=== PATIENT | male | born 1960 | race Caucasian/White ===

== ENCOUNTER 2024-04-10 11:24 | Day surgery (SDC) | payer MEDICARE, OTHER, SELFPAY ==
[2024-04-05 09:47] VITALS: BMI 33.2
[2024-04-10] VITALS (14 sets, daily range): BP systolic 128–166; BP diastolic 53–106; PULSE 17–69; RESP 11–20; TEMP 35.9–36.4; O2SAT 92–100; BMI 33.5
[2024-04-10] MEDS: LACTATED RINGERS 1,000 ML 42 ML IV ×2 (12:14→13:57)
[2024-04-10] MEDS: ACETAMINOPHEN 325 MG TABLET 975 MG PO (12:14)
[2024-04-10] MEDS: SCOPOLAMINE 1 PATCH TOP (12:42)
--- NOTE | 2024-04-10 12:43 | PM.PREOP ---
Pre-operative Note Interval Note History & Physical reviewed/Exam performed by Physician: Yes Changes to H&P: No
--- NOTE | 2024-04-10 13:27 | SUR.OPER ---
Prone on spine table, head in foam head support, padded chest and pelvic supports, gel pad at knees, lower legs supported by pillows; nipples, genitalia and toes free of pressure, arms secured on foam padded arm boards at <90 degrees abduction. Tape over blanket at thigh secured to table.
[2024-04-10] MEDS: BUPIVACAINE 0.25% (PF) 30 ML, EPINEPHrine 0.15 MG INJ (13:33)
[2024-04-10] MEDS: CEFAZOLIN 2 GM/100 ML PREMIX 100 ML IV (13:34)
--- NOTE | 2024-04-10 14:00 | DI.RAD.S_ITS ---
PROCEDURE: XR LUMBAR SPINE 2-3V INDICATIONS: L4-5 MICRODISCECTOMY TECHNIQUE: 2 fluoroscopic views of the lumbar spine were acquired. COMPARISON: None. FINDINGS/IMPRESSION: Ongoing L4-L5 microdiscectomy. Dictated by: Daniel Herman M.D. on 04/10/2024 at 16:56 Approved by: Daniel Herman M.D. on 04/10/2024 at 16:58
--- NOTE | 2024-04-10 14:34 | PM.OP.1 ---
Operative Date/Time/Diagnoses Date of procedure: 04/10/24 Time of procedure: 13:30 Pre-op diagnosis: 1. L4-5 disc herniation 2. L4-5 left L5 radiculopathy Post-op diagnosis: same Procedure & Clinicians Procedure: 1. L4-5 left microdiscectomy 2. Utilization of microsurgical technique and operating microscope Same procedure as scheduled: Yes Indications: Patient has been having chronic back pain and worsening lumbar radiculopathy. Patient was found to have L4-5 left paramedian disc herniation with significant L5 nerve root impingement on the left side correlating with his symptoms. Patient failed multiple conservative management with worsening pain weakness and numbness in his lower extremity. Patient has been having difficulty performing activity of daily living. After discussing risks benefits of treatment options, patient elected proceed with surgery. Surgeon: Delia Kothari Applications Engineer: Vikki Chu Click Yes if Unassisted: No Anesthesia Type: General Operative Notes Closure Type: primary Specimen(s): none sent Estimated Blood Loss (mL): 10 Blood products transfused: none Procedure in detail: Patient was seen in the preoperative area. Risks and benefits of the surgery was discussed with the patient. Informed consent was obtained from the patient and placed in the chart. Surgical site was marked. Patient was taken to the operative room. General anesthesia was administered. Prophylactic antibiotic was given to the patient less than 30 min before the incision was made. Patient was placed into a prone position on the Kojo table. Patient's back was then prepped and draped in the sterile fashion. Time-out was performed at this time. Using AP and lateral C-arm imaging the interval between L4-5 was identified and marked on patient's back. A 1 inch incision 1 in from midline was made on the left side. The fascia was incised in line with skin incision. Globus MARS retractors was placed inside the incision and docked onto the L4 lamina. Using microsurgical technique and operating microscope, a L4 laminotomy was performed using a Kerrison rongeur. Liagamentum flavum was resected at the site of the laminotomy. The disc space at L4-5 was identified. Microdiscectomy was performed by incising the annulus with #11 blade. Microcurettes and pituitary was used to removed herniated disc fragments of disc from the epidural space. After the microdiskectomy was completed, the area medial lateral superior and inferior to the area of the microdiskectomy was inspected and explored using a micro curette. No other impinging structure was identified. Patient's disc fragment was found to be significantly adhered to the dura and the L5 nerve root on the left side. During the process of dissecting the disc fragments to be free from the dura, a dural defect was created from the micro curette. The disc fragment was able to be freed up from the epidural space and removed using a Kerrison rongeur and pituitary. Toseal and DuraGen was used to patch the dural defect. After the patch was completed there was no visible CSF in the epidural space. The wound was then irrigated with sterile normal saline. 40 mg Depo-Medrol was placed into the epidural space. The deep fascia was closed with 1-0 Vicryl. The subcutaneous tissue was closed with 2-0 Vicryl. The skin was closed with skin mare. Patient tolerated the procedure well. There were no complications. Patient was transferred recovery room in stable condition. The Operation could not have been safely performed without compromising the technical result or length of the procedure, without the assistance of a skilled surgical dental assistant. The surgical dental assistant was medically necessary for proper positioning, retraction and manipulation of instruments, proper exposure, surgical preparation, and manipulation of tissue. We will keep the patient head of the bed flat except to eat overnight and patient may participate with physical therapy for mobilization starting 7:00 a.m. tomorrow. This is for patient's dural leak precaution. Patient was going to be discharged after the procedure. The change in plan was discussed with patient's , and she is agreeable to keeping patient as inpatient overnight for dual leak precaution. Complications: none Post-operative Condition: stable Disposition: PACU Plan for aftercare: Admit for overnight observation
--- NOTE | 2024-04-10 15:34 | SUR.PHASEI ---
Pt with slight cough. Lungs clear. Per Dr Kothari goal to minimize coughing. Called in to OR #3. Spoke with Dr Ho. See order for Albuterol neb and cough drops.
[2024-04-10] MEDS: BENZOCAINE/MENTHOL 1 LOZ PKT 1 EACH PO ×2 (15:39→21:42)
[2024-04-10] MEDS: ALBUTEROL 2.5 MG/3 ML NEB (ADULT) INH (15:39)
--- NOTE | 2024-04-10 15:41 | SUR.PHASEI ---
1511 Dr Kothari to bedside to update patient. Plan for patient to stay overnight. Remain flat except eating. May put head up to 23-30 degrees for a short time to eat or lie on his side. Try to minimize coughing. Nursing staff to call MD for medication if patient is coughing.
--- NOTE | 2024-04-10 16:12 | SUR.PHASEI ---
Pt transferred to room 2112 in stretcher by this RN. SBAR report to Nicole Luna. Slider board to bed. No pain. Cough diminishing. All belongings including CPAP in room.
--- NOTE | 2024-04-10 17:08 | PC.NURSE ---
Addendum entered by Arti Browning R.N. 04/10/24 17:28: 1724 HOB back to 0 post meal. denies headache. Original Note: 1708 continues to deny headache. HOB elevated to 20 degrees for dinner. supportive spouse at bedside.
[2024-04-10] MEDS: LACTATED RINGERS 1,000 ML 125 ML IV (20:29)
[2024-04-10] MEDS: GABAPENTIN 300 MG CAPSULE 600 MG PO (20:29)
[2024-04-10] MEDS: SENNOSIDES 8.6 MG TABLET 17.2 MG PO (20:29)
[2024-04-10] MEDS: DOCUSATE 100 MG CAPSULE PO (20:29)
[2024-04-10] MEDS: CEFAZOLIN VIAL 3 GM in SODIUM CHLORIDE 0.9% 100 ML IV (20:29)
[2024-04-10] MEDS: OXYCODONE IR 5 MG TABLET PO (21:42)
[2024-04-11] VITALS: BP 150/63; PULSE 62; RESP 18; TEMP 36.1; O2SAT 98
[2024-04-11 04:00] VITALS: BP 131/59; PULSE 50; RESP 18; TEMP 36.1; O2SAT 98
[2024-04-11] MEDS: OXYCODONE IR 5 MG TABLET PO ×2 (04:13→09:34)
[2024-04-11] MEDS: CEFAZOLIN VIAL 3 GM in SODIUM CHLORIDE 0.9% 100 ML IV (04:30)
--- NOTE | 2024-04-11 06:28 | PC.NURSE ---
Surface Mount Technology Operator Note-Patient was flat in bed throughout the night, log rolling independent without difficulty. Medicated with oxycodone for back pain, denied headache. VSS.
--- NOTE | 2024-04-11 07:32 | PM.DS.1 ---
History of Present Illness History of Present Illness Date Patient Seen: 04/11/24 Time Patient Seen: 07:32 Chief complaint: SDC Narrative: Patient states his back pain is [id number]. No headache. No vision changes. No nausea vomiting. Head of bed was elevated at approximately 7:15 a.m. Discharge Providers Provider Discharge Date: 04/11/24 Primary care physician: Rosendo Rueda DO Consults: 04/10/24 16:36 Consult to Occupational Therapy Evaluate & Treat Comment: Physician Instructions: Evaluate and treat Consult to Physical Therapy Evaluate & Treat Comment: Physician Instructions: Evaluate and Treat Discharge provider: Andreas Mast PA-C Summary Hospital Course Discharge Diagnosis: L4-L5 disc herniation, L4-L5 left L5 radiculopathy, dural tear Hospital Course: 1. L4-5 left microdiscectomy 2. Utilization of microsurgical technique and operating microscope Same procedure as scheduled: Yes Indications: Patient has been having chronic back pain and worsening lumbar radiculopathy. Patient was found to have L4-5 left paramedian disc herniation with significant L5 nerve root impingement on the left side correlating with his symptoms. Patient failed multiple conservative management with worsening pain weakness and numbness in his lower extremity. Patient has been having difficulty performing activity of daily living. After discussing risks benefits of treatment options, patient elected proceed with surgery. Surgeon: Delia Kothari Mexican Food Machine Tender: Vikki Chu Click Yes if Unassisted: No Anesthesia Type: General Operative Notes Closure Type: primary Specimen(s): none sent Estimated Blood Loss (mL): 10 Blood products transfused: none Patient admitted to the hospital for the above-mentioned procedure. Patient consented to the same. Patient's disc fragment was found to be significantly adhered to the dura and the L5 nerve root on the left side. During the process of dissecting the disc fragments to be free from the dura, a dural defect was created from the micro curette. The disc fragment was able to be freed up from the epidural space and removed using a Kerrison rongeur and pituitary. Toseal and DuraGen was used to patch the dural defect. After the patch was completed there was no visible CSF in the epidural space. The wound was then irrigated with sterile normal saline. 40 mg Depo-Medrol was placed into the epidural space. The deep fascia was closed with 1-0 Vicryl. The subcutaneous tissue was closed with 2-0 Vicryl. The skin was closed with skin mare. Patient remained supine in bed overnight except to eat. Patient had his head of bed elevated at 7:00 a.m. this morning without worsening symptoms. Patient may mobilize with physical therapy. If any return of headache he is to go back to supine position. Status at Discharge Cognitive/behavioral status at discharge: at baseline, oriented Functional status at discharge: independent ambulation Overall status at discharge: patient is progressing back to baseline Exam Vital Signs (past 8 hours): - 04/11/24 00:00 04/11/24 04:00 Temperature 97 F L 97 F L Pulse Rate 62 50 L Respiratory Rate 18 18 Blood Pressure 150/63 H 131/59 L Pulse Oximetry 98 98 Oxygen Delivery Method Room Air Oxygen Flow Rate 2 Narrative Exam Narrative: 64-year-old male resting comfortably in no apparent distress. Neurovascular status is intact bilateral lower extremities. Const General: cooperative and comfortable Nutritional Appearance: average body habitus Orientation: alert Resp Effort & Inspection: normal respiratory effort and able to speak in complete sentences [facility] Medical History Sleep apnea Hypertension Social History household members: spouse Smoking Status: Never smoker Discharge Assessment & Plan Assessment and Plan Assessment: Patient progressing as expected. No headache after 15 minutes of head of bed elevated 30?. Plan of Treatment: Patient may mobilize with physical therapy, Rich turned to supine in bed if any return of headache Limit bending, twisting, lifting Multimodal pain management Patient worked with physical therapy and patient was seen again at 10:40 a.m. this morning he has been doing well. He will be discharged home today in stable condition. If any return of headache he should call our office as soon as possible. Discharge Plan Discharge Plan Patient Disposition: Home Discharge orders & Medications Discharge Orders: Discharge (Order); Ordered 04/11/24 Ordered By: Andreas Mast Prescriptions: New acetaminophen 325 mg Tablet 650 mg PO Q6H PRN (Reason: Fever/Mild Pain (1-3)) Qty: 30 0RF polyethylene glycol 3350 17 gram Powder In Packet 17 gm PO DAILY PRN (Reason: Constipation) Qty: 20 0RF oxycodone 5 mg Tablet 5 mg PO Q3H PRN (Reason: Pain, Moderate (4-6)) Qty: 30 0RF Continued atorvastatin 40 mg tablet 40 mg PO DAILY hydrochlorothiazide 25 mg tablet 25 mg PO DAILY tamsulosin 0.4 mg capsule 0.4 mg PO DAILY gabapentin 300 mg capsule 600 mg PO BID Follow up/Referrals: Rosendo Rueda DO [Primary Care Provider] - Delia Kothari MD [Physician] - 04/28/24 1:30 pm (Follow up w/ Andreas Mast PA-C, at [facility] office in [place].) Diet/Activity/Treatments Diet: Diet as Tolerated Activity: No deep bending or twisting at the waist. No lifting more than 10 pounds. Cold/Heat Therapy: Heating pad to low back as needed for muscle spasm. Other treatments: Call the office if you develop a headache that comes on when sitting up or standing and is alleviated by lying flat. Skin/Wound/Dressing Care Report to your healthcare provider any signs of infection, such as:: chills, fever, night sweats, unusual drainage and unusual redness Dressing: May shower. Keep dressing as dry as possible. If dressing becomes wet or dirty, may remove and replace with clean, dry gauze. No bathing or otherwise soaking incision. Do not apply any creams, lotions, or ointments to incision. Call the office if there is any drainage from the incision. Visit Report/Discharge Packet Instructions: DI for Prescription Opioid Use, Oxycodone, DI for Transforaminal Lumbar Interbody Fusion Stand Alone Forms: Patient Portal/API, Surgery Discharge Discharge Data Primary Care Provider: Rosendo Rueda Attending Provider: Delia Kothari Quality VTE Deep Vein Thrombosis/Pulmonary Embolism Present on Admission: No
[2024-04-11 08:00] VITALS: BP 123/56; PULSE 52; RESP 16; TEMP 36.7; O2SAT 98
[2024-04-11] MEDS: GABAPENTIN 300 MG CAPSULE 600 MG PO (09:28)
[2024-04-11] MEDS: DOCUSATE 100 MG CAPSULE PO (09:28)
[2024-04-11] MEDS: TAMSULOSIN 0.4 MG CAPSULE PO (09:28)
[2024-04-11] MEDS: hydroCHLOROthiazide 25 MG TABLET PO (09:28)
[2024-04-11] MEDS: ATORVASTATIN 20 MG TABLET 40 MG PO (09:28)
[2024-04-11] MEDS: ACETAMINOPHEN 325 MG TABLET 650 MG PO (09:29)
[2024-04-11] MEDS: SODIUM CHLORIDE 0.9% FLUSH 10 ML IV (09:29)
--- NOTE | 2024-04-11 10:00 | PT.IIE ---
Current Diagnoses Other intervertebral disc displacement, lumbar region (04/10/24) Surgery Performed Operation Date: 04/10/24 12:45 Actual Procedures p left l4-l5 microdiscectomy - Delia Kothari MD Medical History (Last Reviewed 04/11/24 @ 07:38 by Andreas Mast PA-C) Hypertension Sleep apnea Physical Therapy Inpatient Evaluation/Re-Eval M1 PT/OT-IP Prior Functional Status Start: 04/11/24 12:13 Freq: NEEDED Status: Active Protocol: Document 04/11/24 10:00 AB (Rec: 04/11/24 12:25 AB [id number]) Medical Review Prior Functional Status Medical History Reviewed Yes Communication able to make needs known Mobility and Gait pt stated that he was independent with all mobilities and ambulation without AD Activities of Daily Living and IADL's per OT note: Increased time for ADL and mobility needs. Social History Household Members spouse Living Arrangements House Number of Floors (Floors) One Floor Number of Stairs To Enter/Railing? 5 steps with right rail to enter. 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 M2 PT-IP Current Condition Start: 04/11/24 12:13 Freq: NEEDED Status: Active Protocol: Document 04/11/24 10:00 AB (Rec: 04/11/24 12:25 AB [id number]) Physical Therapy Current Condition Current Condition Evaluation Date 04/11/24 Treatment Diagnosis s/p L4-5 L microdiscectomy; difficulty in walking Onset Date 04/10/24 M3 PT-IP Subjective Start: 04/11/24 12:13 Freq: NEEDED Status: Active Protocol: Document 04/11/24 10:00 AB (Rec: 04/11/24 12:25 AB [id number]) Subjective Physical Therapy Visit Type Type Initial Evaluation Visit Start Time 10:00 Visit Stop Time 10:45 Number of CASEWORK MANAGER Visits 0 Physical Therapy Visit Comments Patient Comments agreeable to do PT Therapy Pain Assessment Pain When Pain Assessed At Rest Location back Intensity 3 Scale Used Numeric (0 - 10) Pain Management Techniques Modification of Treatment,Re- positioning,Timing of Activity with Medications M4 PT-IP Mobility and Gait Start: 04/11/24 12:13 Freq: NEEDED Status: Active Protocol: Document 04/11/24 10:00 AB (Rec: 04/11/24 12:25 AB [id number]) PT-Bed Mobility Assessment Rolling Level of Assist Standby Assistance Supine to Sit Supine to Sit Standby Assistance Sit to Supine Sit to Supine Standby Assistance PT-Transfer Assessment Sit to and From Stand Sit to and from Stand Standby Assistance Equipment Transfer Assistive Device None,Gait Belt,Front Wheeled Walker Orthotic/Prosthetic Devices or Brace: No Transfers Transfer Destination Bed,Chair Transfer Technique ambulated Transfer Ability Level of Assist Standby Assistance,1 Person Assistance,Use of Upper Extremities Comments Mobility Comments pt in bed and agreeable to do PT. pt supine with HOB elevated to ~ 30 deg. BP in supine: 118/75. pt without c /o dizziness/lightheadedness. obtained PLOF and home set up from pt. educated pt regarding back precautions and log roll bed mobility. pt completed log roll supine to sit SBA with max cues for techniques. pt sat on EOB SBA without c/o dizziness. BP checked: 141/78. pt completed sit to stand SBA and ambulated in room ~ 40 ft SBA using fWW. presents with antalgic gait. pt stated that his L hip has also been bothering him for a while not. pt sat on the chair and rested. agreed to get up again SBA. ambulated without AD SBA ~ 125 ft towards the stairs. pt continues to have an antalgic gait but without LOB. pt completed up/down steps using R rail ascending SBA. pt completed x 2 sets. pt ambulated back to his room without AD SBA and sat on EOB. bed mobility training conducted and completed x 2 sets and pt able to complete SBA with cues on first attempt but able to complete without cues on 2nd. pt transferred back on his chair SBA without AD. positioned pt on the chair . pt without further concerns . call light and table placed within reach. Gait Assessment Gait Gait Assistance Required: Standby Assistance Distance (Feet) 125 Able to Maintain Weight Bearing Status Yes During Gait Assistive Devices Assistive Device None,Gait Belt,Front Wheeled Walker Orthotic/Prosthetic Devices or Brace: No Gait Deviations General Gait Pattern Antalgic Factors Limiting Gait Function Factors Limiting Gait Function Decreased Activity Tolerance, Decreased Strength,Limited Range of Motion,Pain,Poor Balance,Poor Safety Awareness Stair Climbing Assessment Evaluation Level of Assist On Stairs Standby Assistance Devices Stair Climbing Assistive Devices Right Railing Technique/Endurance Stair Climbing Direction Ascend and Descend Stair Climbing Technique Step to Step Number of Steps Climbed 3 Query Text: Stair Climbing Set # Repetitions (reps) 2 PT-Balance Assessment Sitting Balance and Reactions Static Sitting Balance Ability Normal Dynamic Sitting Balance Ability Good Standing Balance and Reactions Static Standing Balance Ability Good Dynamic Standing Balance Ability Good Device Used without AD M5 PT-IP Objective Assessments Start: 04/11/24 12:13 Freq: NEEDED Status: Active Protocol: Document 04/11/24 10:00 AB (Rec: 04/11/24 12:25 AB [id number]) Orientation Orientation/Cognition Level of Alertness Alert Orientation Name,Age,Birthday,Month,Date, Year,Day of Week,Place, Situation Language Function Ability No Deficits Noted Safety Awareness Understands Safety Issues Memory Description No Deficits Noted Gross Range of Motion Lower Extremity ROM Assessment Within Functional Limits Strength Lower Extremity Strength Assessment Within Functional Limits Coordination Assessment Gross Coordination Gross Coordination WNL Sensation Assessment Sensation Gross Sensation Left LE Impaired Sensation Description Numbness Comments Sensation Comments LLE numbness per pt: chronic Muscle Tone Muscle Tone WNL Yes M6 PT-IP Treatment Start: 04/11/24 12:13 Freq: NEEDED Status: Active Protocol: Document 04/11/24 10:00 AB (Rec: 04/11/24 12:25 AB [id number]) Physical Therapy Treatment Education Education Provided Precautions,Weight Bearing Status,Post-Op Packet,Safety M7 PT-IP Assessment and Plan Start: 04/11/24 12:13 Freq: NEEDED Status: Active Protocol: Document 04/11/24 10:00 AB (Rec: 04/11/24 12:25 [id number]) PT Summary Assessment and Plan Potential Rehabilitation Potential Fair Status of Condition at Evaluation Stable Summary Impairments Pain,ROM,Strength,Balance, Sensation,Bed Mobility, Transfers,Gait,Activity Tolerance Assessment Summary pt is a 64 y/o M s/p L L4-5 microdiscectomy POD 1. pt has a dural tear. No symptoms during PT session and tolerated session well. pt able to complete all mobilities SBA without AD. pt plans to go home and spouse to assist him when needed. pt may go home when medically stable. Goals Bed Mobility Goal Independent Transfer Goal Independent Gait Goal Independent Gait Distance 300 Other Goals up/down 5 steps R rail ascending mod I Days to Meet Goals 3 Frequency of Treatment Frequency Of Treatment Twice a Day Treatment Plan Physical Therapy Treatment Plan Bed Mobility Training,Transfer Training,Gait Training, Therapeutic Exercise,Balance Retraining,Post Op Education, Discharge Planning,Hot or Cold Pack,Neuromuscular Re-ed, Coordination Retraining,Manual Therapy Precautions Lumbar Precautions Log Roll,No Twisting,Limit Bending,Lifting Restriction of 10 lbs,Gait Belt above Incisional Area Recommendations To Nursing Amount of Assist Needed Standby Assistance Discharge Recommendations PT Discharge Recommendations Home with Assistance Transportation Needs at Discharge Private Vehicle
--- NOTE | 2024-04-11 11:30 | OT.IP.EVAL ---
Addendum entered and electronically signed by Neva Guajardo OT 04/11/24 11:44: esign Original Note: Current Diagnoses Other intervertebral disc displacement, lumbar region (04/10/24) Surgery Performed Operation Date: 04/10/24 12:45 Actual Procedures p left l4-l5 microdiscectomy - Delia Kothari MD Past Medical History (Last Reviewed 04/11/24 @ 07:38 by Andreas Mast PA-C) Hypertension Sleep apnea Occupational Therapy Inpatient Evaluation/Re-Eval M1 PT/OT-IP Prior Functional Status Start: 04/11/24 11:26 Freq: NEEDED Status: Active Protocol: Document 04/11/24 11:28 [facility] (Rec: 04/11/24 11:39 [facility] [id number]) Medical Review Prior Functional Status Communication Independent Mobility and Gait Pt has left leg pain which would limit his distance and speed. Pt did not use any devices for ambulation prior. Activities of Daily Living and IADL's Increased time for ADL and mobility needs. Social History Household Members spouse Living Arrangements House Number of Floors (Floors) One Floor Number of Stairs To Enter/Railing? 4-5 steps with right rail to enter. 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 M2 OT-IP Current Condition Start: 04/11/24 11:26 Freq: Status: Active Protocol: Document 04/11/24 11:28 [facility] (Rec: 04/11/24 11:39 [facility] [id number]) Occupational Therapy Current Condition Current Condition Evaluation Date 04/11/24 Treatment Diagnosis S/P L4-5 Left microdiscectomy Diagnosis Onset Date 04/10/24 Post Operative Precautions Lumbar Precautions Log Roll,No Twisting,Limit Bending,Lifting Restriction of 10 lbs,Gait Belt above Incisional Area M3 OT- IP Subjective and Pain Start: 04/11/24 11:26 Freq: Status: Active Protocol: Document 04/11/24 11:28 [facility] (Rec: 04/11/24 11:39 [facility] [id number]) OT- Subjective Occupational Therapy Visit Type Type Initial Evaluation Visit Start Time 10:55 Visit Stop Time 11:26 Occupational Therapy Visit Comments Patient Comments Pt agreed to work with OT.Pt had a dural tear and was to be supine until this 7Am. Andreas Mast had pt with HOB up this morning. Pt had no complaints of any headaches and cleared to do therapy evals. Patient/Caregiver Goals TO go home. OT Pain Assessment Pain When Pain Assessed At Rest Pain Present Pain Present Pain Reported Location back Intensity 1 Scale Used Numeric (0 - 10) M4 OT- IP ADL's Start: 04/11/24 11:26 Freq: Status: Active Protocol: Document 04/11/24 11:28 [facility] (Rec: 04/11/24 11:39 [facility] [id number]) OT [id number] General Evaluation Self-Feeding Ability Independent OT ADL-Grooming General Evaluation Grooming Ability Standby Assistance Areas Needing Assistance Retrieving/Set-up of Grooming Items OT ADL-Oral Care General Eval Oral Care Ability Standby Assistance Comments Oral Care Comments VC to hinge at his hips or just spit into a cup to best follow his back precautions. OT ADL-Dressing General Eval Upper Body Dressing Ability Independent Lower Body Dressing Ability Contact Guard Assistance Areas Needing Assistance Retrieving/Set-up of Clothing, Pants/Shorts Comments OT Dressing Comments Assist to get the straps on the suspenders over his shoulders. VC to sit to get dressed. Able to have pt practice use of LB dressing equipment. Pt able to manage without, but would be best to use them as pt tends to hold his breath and struggle some. 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 OT ADL-Toileting Comments OT Toileting Comments Educated easier to stand to wipe and use of wet ones. OT ADL-Bathing Comments OT Bathing Comments Suggested to have assist and may benefit from a shower chair. Also best to cover the dressing prior to showering. M5 OT- IP IADL's Start: 04/11/24 11:26 Freq: Status: Active Protocol: Document 04/11/24 11:28 [facility] (Rec: 04/11/24 11:39 [facility] [id number]) OT-Instrumental Activities of Daily Living Deficits IADL Deficits Identified Deficits Home Safety Awareness Awareness of Need for Assistance at Home Good Awareness Ability to Problem Solve Emergency Able to Problem Solve Situations Home Safety Comments Pt's will be able to assist with all needs at home as needed. Meal Preparation Meal Preparation Caregiver Provides Assist Nursing Service Director Nursing Service Director Caregiver Provides Assist M6 OT- IP Functional Cognition Start: 04/11/24 11:26 Freq: Status: Active Protocol: Document 04/11/24 11:28 [facility] (Rec: 04/11/24 11:39 [facility] [id number]) Cognitive Factors Limiting Selfcare Function Cognitive Ability Level of Alertness Alert Patient Orientation Name,Age,Birthday,Month,Date, Year,Day of Week,Place, Situation Attention Span Ability Capable of Focused Attention, Capable of Sustained Attention Ability to Follow Commands Able to Follow Multi-Step Commands Memory Description No Deficits Noted Safety Awareness Decreased Ability to Apply Precautions Cognitive Comments Cognitive Assessment Comments Pt just needing reminders to slow down and be sure to follow his back precautions. OT- Vision and Hearing OT- Hearing Assessment OT- Hearing Assessment WFL OT- Vision Assessment Vision Assessment Comments Pt wears glasses. M7 OT- IP Mobility and Balance Start: 04/11/24 11:26 Freq: Status: Active Protocol: Document 04/11/24 11:28 [facility] (Rec: 04/11/24 11:39 [facility] [id number]) OT-Transfer Assessment Sit to and From Stand Sit to and from Stand Independent Transfers Transfer Ability Independent Technique Transfer Destination Chair Devices Transfer Assistive Devices None Comments Mobility Comments Pt able to more with increased time in the room without a device. OT- Balance Assessment Sitting Balance and Reactions Static Sitting Balance Ability Normal Dynamic Sitting Balance Ability Normal Standing Balance and Reactions Static Standing Balance Ability Normal Dynamic Standing Balance Ability Good M8 OT- IP Objective Assessments Start: 04/11/24 11:26 Freq: Status: Active Protocol: Document 04/11/24 11:28 [facility] (Rec: 04/11/24 11:39 [facility] [id number]) OT Strength Comments Strength Comments WFL for needs. M9 OT- IP Assessment and Plan Start: 04/11/24 11:26 Freq: Status: Active Protocol: Document 04/11/24 11:28 [facility] (Rec: 04/11/24 11:39 [facility] [id number]) OT Summary Assessment and Plan Potential Rehabilitation Potential Excellent Analytic Complexity at Evaluation Low Summary OT Impairments Pain,Functional Mobility, Dressing,Bathing Progress Towards Goals Progressing Toward Goals Assessment Summary Pt low complexity and main barriers are pain, needing cues to slow down and incorporate his back precautions and to be mindful of his pets at home. Pt to go home with assist when medically stable. Frequency of Treatment Frequency Of Treatment Discharge Discharge Recommendations OT Discharge Recommendations Home with Assistance Home Equipment Needs Shower chair? LB dressing equipmnet Transportation Needs at Discharge Private Vehicle
--- NOTE | 2024-04-11 12:23 | PC.NURSE ---
Pt is dressed and ready for discharge home with Spouse. IV has been removed. DSG to back changed to Coversite. [place] are intact and without drainage. Went over d/c instructions with Pt-discussed d/c meds, time of last dose, reviewed stroke education, back precautions, reminded Pt no driving while on narcotics, do not exceed 3000mg of Acetaminophen in 24 hours, drink plenty of fluids to prevent constipation or dehydration, showering and leave dsg in place until follow up appointment unless soiled. Pt denied further questions and was taken out via w/c by RETAIL PROPERTY MANAGER to POV with Spouse and all belongings.
== END 2024-04-11 12:28 | disposition home or self-care (01) ==
LOC: OR 11:27 → AC 16:08
PROVIDERS: PCP Family Medicine; Referring Provider Orthopaedic Surgery Orthopaedic Surgery of the Spine; Visit Provider Orthopaedic Surgery Orthopaedic Surgery of the Spine
PROC: (CPT 63030; principal; 2024-04-10 12:45)
DX: M51.26 Other intervertebral disc displacement, lumbar region (principal); M54.16 Radiculopathy, lumbar region
CPT/HCPCS: 63030; 72100; 76000; 82962; 97116; 97161; 97165; 97530; 97535; J0171; J0330; J0690; J1100; J1170; J2405; J2704; J2919; J3010; J3490; J7613